=== PATIENT | male | born 1975 | race Caucasian/White ===

== ENCOUNTER 2018-10-12 20:44 | Emergency (ER) | payer OTHER ==
[2018-10-12 21:24] VITALS: BP 116/69; PULSE 80; RESP 18; TEMP 97.4
[2018-10-12] MEDS ORDERED: DIPH,PERTUS(ACELL)TETVAC-LF 0.5 ML VIAL IM ONE (22:06)
[2018-10-12] MEDS ORDERED: LIDOCAINE 1% INJ 10MG/ML (20 ML MDV) SQ STA (22:06)
--- NOTE | 2018-10-12 22:06 | CT ---
EXAM: CT Head Without Intravenous Contrast CLINICAL HISTORY: Pain TECHNIQUE: Axial computed tomography images of the head/brain without intravenous contrast. CTDI is 0.75, 0.085, 45.2, 9 mGy and DLP is 1286.3 mGy-cm. This CT exam was performed using one or more of the following dose reduction techniques: automated exposure control, adjustment of the mA and/or kV according to patient size, and/or use of iterative reconstruction technique. COMPARISON: No relevant prior studies available. FINDINGS: Brain: No acute infarct, hemorrhage, mass or edema. No significant white matter disease. Ventricles: Unremarkable. No ventriculomegaly. Bones/joints: Unremarkable. No acute fracture. Soft tissues: Unremarkable. Sinuses: Unremarkable as visualized. No acute sinusitis. Mastoid air cells: Unremarkable as visualized. No mastoid effusion. IMPRESSION: No acute findings. EXAM: CT Cervical Spine Without Intravenous Contrast CLINICAL HISTORY: Pain TECHNIQUE: Axial computed tomography images of the cervical spine without intravenous contrast. CTDI is 0.75, 0.085, 45.2, 9 mGy and DLP is 1286.3 mGy-cm. This CT exam was performed using one or more of the following dose reduction techniques: automated exposure control, adjustment of the mA and/or kV according to patient size, and/or use of iterative reconstruction technique. COMPARISON: No relevant prior studies available. FINDINGS: Vertebrae: No acute fracture or traumatic malalignment. Reversal of the normal cervical lordosis, likely positional. Discs/spinal canal/neural foramina: No acute findings. No spinal canal stenosis. Soft tissues: Unremarkable. IMPRESSION: No acute findings.
--- NOTE | 2018-10-12 23:08 | ED ---
General Adult HPI - General Chief complaint: Head Injury Stated complaint: Fall, Head Injury Time Seen by Provider: 10/12/18 21:41 Source: patient, RN notes reviewed, old records reviewed Mode of arrival: ambulatory Limitations: no limitations - History of Present Illness Initial comments: 43-year-old male patient with no pertinent past medical history presents ED after sustaining a fall and frontal lobe head trauma. Patient reports that he was working in his garage, tripped fell forward and hit his forehead on a block of a car. Patient fell back, did not have a loss of consciousness. Patient does have a small laceration to his forehead approximately 2 cm. Patient reports that he had some dizziness which has since resolved. Patient denies any current headache. Patient denies any other complaints. Systemic: Pt denies fatigue, myalgia, fever/chills, rash. Pt denies weakness, night sweats, weight loss. Neuro: Pt denies headache, visual disturbances, syncope or pre-syncope. HEENT: Pt denies ocular discharge or irritation, otalgia, rhinorrhea, pharyngitis or notable lymphadenopathy. Cardiopulmonary: Pt denies chest pain, SOB, heart palpitations, dyspnea on exertion. Abdominal/GI: Pt denies abdominal pain, n/v/d. : Pt denies dysuria, burning w/ urination, frequency/urgency. Denies new onset urinary or bowel incontinence. MSK: Pt denies myalgia, loss of strength or function in extremities. Neuro: Pt denies new onset weakness, paresthesias. - Related Data Allergies Allergy/AdvReac Type Severity Reaction Status Date / Time No Known Allergies Allergy Verified 10/12/18 21:24 Review of Systems ROS Statement: Those systems with pertinent positive or pertinent negative responses have been documented in the HPI. ROS Other: All systems not noted in ROS Statement are negative. Past Medical History Past Medical History: No Reported History History of Any Multi-Drug Resistant Organisms: None Reported Past Surgical History: No Surgical Hx Reported Past Psychological History: Bipolar Smoking Status: Current every day smoker Past Alcohol Use History: Abuse, Heavy Past Drug Use History: None Reported General Exam - General Exam Comments Initial Comments: Constitutional: NAD, AOX3, Pt has pleasant affect. HEENT: NC/AT, trachea midline, neck supple, no lymphadenopathy. Posterior pharynx non erythematous, without exudates. External ears appear normal, without discharge. Mucous membranes moist. Eyes PERRLA, EOM intact. There is no scleral icterus. No pallor noted. Cardiopulmonary: RRR, no murmurs, rubs or gallops, no JVD noted. Lungs CTAB in anterior and posterior caberra. No peripheral edema. Abdominal exam: Abdomen soft and non-distended. Abdomen non-tender to palpation in all 4 quadrants. Bowel sounds active in LLQ. No hepatosplenomegaly. No ecchymosis Neuro: CN II-XII intact. No nuchal rigidity. No cervical spinal tenderness. MSK: 2cm laceration noted on forehead. Closed with 3 simple interrupted sutures. Pt tolerated procedure well. No posterior calf tenderness bilaterally, homans sign negative bilaterally. Posterior tibialis and radial pulse +2 bilaterally. Sensation intact in upper and lower extremities. Full active ROM in upper and lower extremities, 5/5 stregnth. Limitations: no limitations Course Vital Signs 10/12/18 21:20 Temperature 97.4 F L Pulse Rate 80 Respiratory 18 Rate Blood Pressure 116/69 O2 Sat by Pulse 98 Oximetry Procedures - Laceration Laceration #1 Consent Obtained: verbal consent Indication: laceration Site: other (forehead) Size (cm): 2 Description: linear Depth: simple, single layer Anesthetic Used: lidocaine 1% Anesthesia Technique: local infiltration Amount (mls): 3 Pre-repair: wound explored, irrigated extensively, deep structures intact (no foreign body or osseous involvement) Type of Sutures: nylon Size of Sutures: 5-0 Number of Sutures: 3 Technique: simple, interrupted Patient Tolerated Procedure: well, no complications Medical Decision Making - Medical Decision Making 43-year-old male patient with no pertinent past medical history presents ED after sustaining a fall and frontal lobe head trauma. Patient reports that he was working in his garage, tripped fell forward and hit his forehead on a block of a car. Patient fell back, did not have a loss of consciousness. Patient does have a small laceration to his forehead approximately 2 cm. Patient reports that he had some dizziness which has since resolved. Patient denies any current headache. Patient denies any other complaints. Patient vital signs stable, afebrile. Physical exam displayed a normal neurological exam, 2cm laceration noted on forehead. Closed with 3 simple interrupted sutures. Pt tolerated procedure well. Repeat neurologic exam within normal limits. CT of brain and cervical spine without contrast did not display any acute process. Patient asymptomatic. Patient tetanus updated. Patient to be discharged. Follow up with primary care provider. Patient educated on signs and symptoms of infection. Patient was understanding. Case discussed with Dr. Saba. Disposition Clinical Impression: Fall Disposition: HOME SELF-CARE Condition: Stable Instructions (If sedation given, give patient instructions): Fall Prevention (ED) Additional Instructions: Patient to adhere to previously discussed treatment plan and will take medication(s) as directed. Patient to follow up with PCP in 1-2 days. Patient to return to ED if symptoms do not improve. Please return for suture removal: Hand: 7-10 days Face: 5 days Chest/abdomen: 12-14 days Extremities: 7-10 days Scalp: 7 days Eyebrow: 5-7 days Foot/sole: 12-14 days Please monitor for signs and symptoms of infection including: redness, warmth, drainage, discharge. Please return to ED if these signs or symptoms occur, new signs or symptoms develop or if condition worsens in anyway. Is patient prescribed a controlled substance at d/c from ED?: No Referrals: Bernardo Niño MD [Primary Care Provider] - 1-2 days
== END 2018-10-12 23:13 | disposition home or self-care (01) ==
LOC: EC 20:44
DX: S01.81XA Laceration without foreign body of other part of head, initial encounter (principal); F17.200 Nicotine dependence, unspecified, uncomplicated; Z23 Encounter for immunization; W01.198A Fall on same level from slipping, tripping and stumbling with subsequent striking against other object, initial encounter; Y92.015 Private garage of single-family (private) house as the place of occurrence of the external cause; Y93.89 Activity, other specified
CPT/HCPCS: 72125; 70450; 90715; 99284; 12011; 90471; J2001

== ENCOUNTER 2019-12-11 15:33 | Emergency (ER) | payer OTHER ==
[2019-12-11 15:41] VITALS: TEMP 98.3
[2019-12-11] MEDS ORDERED: HYDROcodone/APAP 7.5-325MG 1 EACH TAB PO ONE (16:06)
--- NOTE | 2019-12-11 16:36 | XR ---
EXAMINATION TYPE: XR forearm LT, XR humerus LT DATE OF EXAM: 12/11/2019 CLINICAL HISTORY: Ripping sensation and pain after lifting injury of the left forearm. TECHNIQUE: Two views of the left forearm are obtained. 2 views of the left humerus were also obtained . COMPARISON: None. FINDINGS: There is no acute fracture or dislocation seen in the left radius or ulna. The left elbow and wrist joints appear within normal limits. The overlying soft tissue appears within normal limit s. There is no acute fracture or dislocation seen in the left humerus. The left shoulder and elbow joints appear aligned with mild acromioclavicular arthropathy. The overlying soft tissue appears wit hin normal limits. IMPRESSION: There is no acute fracture or dislocation seen in the left humerus, radius or ulna.
--- NOTE | 2019-12-11 16:37 | ED ---
Upper Extremity HPI - General Chief Complaint: Extremity Injury, Upper Stated Complaint: Arm injury Time Seen by Provider: 12/11/19 15:44 Source: patient Mode of arrival: ambulatory Limitations: no limitations - History of Present Illness Initial Comments: 44-year-old male presenting for onset of left arm pain that started today. Having heavy. Patient states he lifted something heavy and then he felt some pain near his left antecubital fossa. Patient states that mostly is pain in the mid forearm he did not note any lump on the forearm he states the pain occasional radiates towards triceps but is mostly in the left forearm. patient believe he tore something. Patient denies arm swelling, redness, coolness or pallor. He denies experiencing this pain prior to lifting the heavy object, denies fall or direct trauma. Patient has no additional complaints. Upon arrival he appears well no distress. - Related Data Allergies Allergy/AdvReac Type Severity Reaction Status Date / Time No Known Allergies Allergy Verified 12/11/19 15:37 Review of Systems ROS Statement: Those systems with pertinent positive or pertinent negative responses have been documented in the HPI. ROS Other: All systems not noted in ROS Statement are negative. Past Medical History Past Medical History: No Reported History History of Any Multi-Drug Resistant Organisms: None Reported Past Surgical History: No Surgical Hx Reported Additional Past Surgical History / Comment(s): R hand Past Psychological History: Bipolar Smoking Status: Current every day smoker Past Alcohol Use History: None Reported Past Drug Use History: None Reported General Exam - General Exam Comments Initial Comments: General: The patient is awake and alert, in no distress, and does not appear acutely ill. Eye: Pupils are equal, round and reactive to light, extra-ocular movements are intact. No nystagmus. There is normal conjunctiva bilaterally. No signs of icterus. Ears, nose, mouth and throat: There are moist mucous membranes and no oral lesions. Musculoskeletal: Normal inspection of the humerus and forearm. There is no bulging palpable muscle belly. Patient is tenderness along the proximal forearm. No CVA tenderness of the triceps muscle. Full range motion of the forearm as well as the shoulder and wrist. Patient is able to make the okay fingers crossed thumbs-up and oppose the small digit and thumb. Refuses a [place] strength test that appears intact sensation intact Radial pulses equal bilat erally 2+. Neurological: A&O x 3. CN II-XII intact grossly, There are no obvious motor or sensory deficits. Coordination appears grossly intact. Speech is normal. Skin: Skin is warm and dry and no rashes or lesions are noted. Psychiatric: Cooperative, appropriate mood & affect, normal judgment. Limitations: no limitations Course Vital Signs 12/11/19 12/11/19 15:38 16:15 Temperature 98.3 F Pulse Rate 92 73 Respiratory 18 16 Rate Blood Pressure 122/72 141/78 O2 Sat by Pulse 97 100 Oximetry Medical Decision Making - Medical Decision Making 44-year-old male presenting today for chief complaint of left arm injury after lifting, reproducible to touch/movement. Suspect tendon/muscle injury. XR (-) Neurovascular exam intact. No swelling. Patient was provided sling for comfort given [place] in the emergency department instructed to take ibuprofen and Tylenol patient and follow-up with orthopedic surgery return parameters were discussed the patient was discharged appearing well Disposition Clinical Impression: Left upper arm injury Disposition: HOME SELF-CARE Condition: Good Instructions (If sedation given, give patient instructions): Tendon Rupture (ED) Additional Instructions: Please use medication as discussed. Please follow-up with family doctor in the next 2 days, if symptoms persistent please follow-up with orthopedic surgery for evaluation. Please return to emergency room if the symptoms increase or worsen or for any other concerns. Is patient prescribed a controlled substance at d/c from ED?: No Referrals: Bernardo Niño MD [Primary Care Provider] - 1-2 days Pancho Lawson MD [Medical Doctor] - 1-2 days Time of Disposition: 16:37
[2019-12-11 17:05] VITALS: BP 141/78; PULSE 73; RESP 16
== END 2019-12-11 17:03 | disposition home or self-care (01) ==
LOC: EC 15:33
DX: S49.92XA Unspecified injury of left shoulder and upper arm, initial encounter (principal); F17.200 Nicotine dependence, unspecified, uncomplicated; X50.0XXA Overexertion from strenuous movement or load, initial encounter
CPT/HCPCS: 99283

== ENCOUNTER 2022-02-07 00:05 | Observation (INO) | payer MEDICAID, OTHER ==
[2022-02-07 00:40] LABS: Basophils # (A) 0.1 k/uL (0-0.2); Basophils % (A) 0 %; Eosinophils # (A) 0.1 k/uL (0-0.7); Eosinophils % (A) 1 %; HCT 45.4 % (39.0-53.0); Lymphocytes # (A) 1.4 k/uL (1.0-4.8); Lymphocytes % (A) 11 %; MCH 32.6 pg (25.0-35.0); MCHC 35.2 g/dL (31.0-37.0); MCV 92.6 fL (80.0-100.0); Mean Platelet Volume 7.5; Monocytes # (A) 0.6 k/uL (0-1.0); Monocytes % (A) 5 %; Neutrophils # (A) 10.4 k/uL (1.3-7.7); Neutrophils % (A) 82 %; Platelet Count 296 k/uL (150-450); RDW 12.9 % (11.5-15.5); WBC 12.7 k/uL (3.8-10.6)
[2022-02-07 01:00] LABS: Partial Thromboplastin Time 26.3 sec (22.0-30.0); Prothrombin Time 10.5 sec (9.0-12.0)
[2022-02-07 01:06] LABS: Albumin 5.1 g/dL (3.5-5.0); Calcium 10.3 mg/dL (8.4-10.2); Potassium 4.3 mmol/L (3.5-5.1); Total Bilirubin 0.4 mg/dL (0.2-1.3); Total Protein 8.1 g/dL (6.3-8.2)
[2022-02-07] MEDS ORDERED: NITROGLYCERIN SL TABS 0.4 MG TAB SUBLINGUAL PRN (02:44)
--- NOTE | 2022-02-07 02:53 | ED ---
Chest Pain HPI - General Chief Complaint: Chest Pain Stated Complaint: Chest Pain Time Seen by Provider: 02/07/22 01:10 Source: patient Mode of arrival: wheelchair Limitations: no limitations - History of Present Illness Initial Comments: This patient is a 46-year-old man who presents to have evaluation of a number of symptoms. Patient states the main one a concern and was some pain in the chest. Patient indicates the area just left the sternum and the epigastric area. He states also that there was some tightness in the upper chest associated is well. The pain did come on approximately an hour prior to arrival here. He states that he was in bed trying to rest. Patient also was having some other aches and pains throughout the course of the day but believes that the chest pain was something different. Patient states she has strong family history of cardiac disease including a grandfather had of heart attack, father who had a couple stents. Patient with heavy smoking history. MD Complaint: chest pain Onset/Timin -: hour(s) Onset: during rest Pain Location: substernal, epigastric Pain Radiation: none Severity: moderate Quality: tightness Consistency: constant Improves With: nothing Worsens With: nothing Treatments Prior to Arrival: none - Related Data Home Medications Medication Instructions Recorded Confirmed Escitalopram [Lexapro] 10 mg PO DAILY 02/07/22 02/07/22 Fluticasone Nasal [place] [Flonase 2 spray EA NOSTRIL DAILY PRN 02/07/22 02/07/22 Nasal [place]] Loratadine [Claritin] 10 mg PO BID 02/07/22 02/07/22 Montelukast Sodium [Singulair] 10 mg PO DAILY 02/07/22 02/07/22 Sildenafil Citrate 100 mg PO HS 02/07/22 02/07/22 Umeclidinium Brm/Vilanterol Tr 1 puff INHALATION RT-DAILY 02/07/22 02/07/22 [Anoro Ellipta 62.5-25 Mcg INH] Allergies Allergy/AdvReac Type Severity Reaction Status Date / Time No Known Allergies Allergy Verified 02/07/22 06:47 Review of Systems ROS Statement: Those systems with pertinent positive or pertinent negative responses have been documented in the HPI. ROS Other: All systems not noted in ROS Statement are negative. Constitutional: Denies: fever, chills Respiratory: Denies: cough, dyspnea Cardiovascular: Reports: chest pain. Denies: palpitations, orthopnea, edema, syncope Gastrointestinal: Denies: abdominal pain, nausea, vomiting, diarrhea Genitourinary: Denies: dysuria, hematuria Musculoskeletal: Denies: back pain Skin: Denies: rash Neurological: Denies: headache, weakness, numbness EKG Findings - EKG Results: EKG: interpreted by ERMD, sinus rhythm, normal axis, normal QRS, normal ST/T, no acute changes EKG shows: tachycardia (Rate 104 bpm) Past Medical History Past Medical History: No Reported History History of Any Multi-Drug Resistant Organisms: None Reported Past Surgical History: No Surgical Hx Reported Additional Past Surgical History / Comment(s): R hand Past Psychological History: Bipolar Smoking Status: Current every day smoker Past Alcohol Use History: None Reported Past Drug Use History: None Reported - Past Family History Father Family Medical History: Coronary Artery Disease (CAD) Additional Family Medical History / Comment(s): Cardiac stents, Mi in his 60s. Pt's uncles on dad's side had MIs in their 50s. Mother Family Medical History: Diabetes Mellitus, Hypertension, Osteoarthritis (OA), Renal Disease Additional Family Medical History / Comment(s): Gout, blindness. Pt's uncles on mother's side had MIs. General Exam Limitations: no limitations General appearance: alert, in no apparent distress Head exam: Present: atraumatic, normocephalic Eye exam: Present: normal appearance. Absent: scleral icterus, conjunctival injection Respiratory exam: Present: normal lung sounds bilaterally. Absent: respiratory distress, wheezes, rales, rhonchi, stridor Cardiovascular Exam: Present: regular rate, normal heart sounds. Absent: systolic murmur, diastolic murmur, rubs, gallop GI/Abdominal exam: Present: soft. Absent: distended, tenderness, guarding, rebound, rigid Extremities exam: Present: normal inspection, normal capillary refill. Absent: pedal edema, calf tenderness Back exam: Present: normal inspection. Absent: CVA tenderness (R), CVA tenderness (L) Neurological exam: Present: alert Skin exam: Present: warm, dry, intact, normal color. Absent: rash Course Vital Signs 02/07/22 02/07/22 02/07/22 00:07 03:05 08:44 Pulse Rate 112 H 88 79 Respiratory 16 18 16 Rate Blood Pressure 109/74 92/54 O2 Sat by Pulse 92 L 98 Oximetry 02/07/22 13:14 Pulse Rate 68 Respiratory 18 Rate Blood Pressure 114/72 O2 Sat by Pulse Oximetry Disposition Clinical Impression: Chest pain Disposition: ADMITTED IP TO THIS HOSP Condition: Stable Is patient prescribed a controlled substance at d/c from ED?: No
[2022-02-07] MEDS ORDERED: ATORVASTATIN 80 MG TAB PO SCH (03:59)
--- NOTE | 2022-02-07 04:01 | P.HPIM ---
History of Present Illness H&P Date: 02/07/22 The patient is a 46-year-old male with a PMH of COPD, and tobacco abuse who presents to the emergency room with complaints of chest discomfort. The patient reports that he was in his usual state of health until a 7 PM earlier today when he developed sudden onset of left-sided chest discomfort with associated shortness of breath, diaphoresis, and dizziness. The patient reports that he has had multiple family members who have before the age of 50 with heart attacks, and that his symptoms prompted him to come to the emergency room. He reports that his pain has resolved at the time of interview. Reports that the pain was 10 out of 10 on maximal intensity, nonradiating, with above associated symptoms. Reports a chronic morning cough which is unchanged. Denied fever, chills, abdominal pain, diarrhea. Denied lower extremity swelling or pain. Laboratory evaluation emergency room revealed WBC count 12.7, BUN 37, creatinine 1.73, with troponin less than 0.012. EKG revealed sinus tachycardia at [address]/T-wave changes noted as reviewed by me. Review of systems: Pertinent positives and negatives as discussed in HPI, a complete review of systems was performed and all other systems are negative. Physical examination: General: non toxic, no distress, appears at stated age, normal weight Derm: no unusual rashes/lesions, warm Head: atraumatic, normocephalic, symmetric Eyes: EOMI, no lid lag, anicteric sclera, pupils equal round reactive to light ENT: Nose and ears atraumatic Neck: No cervical lymphadenopathy, trachea midline, supple Mouth: no lip lesion, mucus membranes moist Cardiovascular: S1S2 reg, no murmur, positive dorsalis pedis pulse bilateral, no edema Lungs: CTA bilateral, no rhonchi, no rales, no accessory muscle use Abdominal: soft, nontender to palpation, no guarding Ext: muscle strength 5 out of 5 in all 4 extremities grossly, no gross muscle atrophy, no contractures, Neuro: CN II-XI grossly intact, no gross focal neuro deficits Psych: Alert, oriented, appropriate affect Assessment/plan Chest pain, rule out ACS -Cardiac monitoring -Trend troponin -Cardiology consult -Continue with aspirin, statin Chronic conditions: COPD -Continue home meds DVT prophylaxis -Heparin subcu The patient is admitted with an anticipated less than 2 midnight stay for evaluation of chest pain CODE STATUS: Full Code Discussed with: Patient Anticipated discharge date: In a.m. Anticipated discharge place: Home Past Medical History Past Medical History: No Reported History History of Any Multi-Drug Resistant Organisms: None Reported Past Surgical History: No Surgical Hx Reported Additional Past Surgical History / Comment(s): R hand Past Psychological History: Bipolar Smoking Status: Current every day smoker Past Alcohol Use History: None Reported Past Drug Use History: None Reported - Past Family History Father Family Medical History: Coronary Artery Disease (CAD) Medications and Allergies Allergies Allergy/AdvReac Type Severity Reaction Status Date / Time No Known Allergies Allergy Verified 02/07/22 00:07 Physical Exam Vitals: Vital Signs Pulse Resp BP Pulse Ox 02/07/22 03:05 88 18 109/74 92 L 02/07/22 00:07 112 H 16 Intake and Output 02/06/22 02/06/22 02/07/22 14:59 22:59 06:59 Other: Weight 78.471 kg Results CBC & Chem 7: 02/07/22 00:13 02/07/22 00:13 Labs: Abnormal Lab Results - Last 24 Hours (Table) 02/07/22 02/07/22 Range/Units 00:13 00:13 WBC 12.7 H (3.8-10.6) k/uL Neutrophils # 10.4 H (1.3-7.7) k/uL BUN 37 H (9-20) mg/dL Creatinine 1.73 H (0.66-1.25) mg/dL Glucose 107 H (74-99) mg/dL Calcium 10.3 H (8.4-10.2) mg/dL Albumin 5.1 H (3.5-5.0) g/dL
--- NOTE | 2022-02-07 04:21 | XR ---
EXAMINATION TYPE: XR chest 2V DATE OF EXAM: 02/07/2022 COMPARISON: 12/27/2021 HISTORY: Chest pain TECHNIQUE: FINDINGS: Heart and mediastinum are normal. Lungs are clear. Diaphragm is normal. Bony thorax is inta ct. There are chest leads. IMPRESSION: Normal chest. No change.
[2022-02-07] MEDS ORDERED: HEPARIN SODIUM,PORCINE/PF 5,000 UNIT/0.5 ML SYRINGE SQ SCH (08:00)
[2022-02-07 10:06] LABS: African American GFR (CKD) 79 (>60 ml/min/1.73 sqM); Anion Gap 8 mmol/L; Blood Urea Nitrogen 38 mg/dL (9-20); Calcium 9.7 mg/dL (8.4-10.2); Carbon Dioxide 25 mmol/L (22-30); Chloride 105 mmol/L (98-107); Glucose 96 mg/dL (74-99); Non-African American GFR(CKD) 69 (>60 ml/min/1.73 sqM); Potassium 4.1 mmol/L (3.5-5.1); Sodium 138 mmol/L (137-145)
--- NOTE | 2022-02-07 11:41 | P.CRDCN ---
History of Present Illness History of present illness: This is a 46 year old male with a past medical history of COPD, chronic nicotine dependence, family history of CAD. 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 He did have a stress test with Dr. Mitchell 2 years ago. We have been asked to see patient for chest pain. Yesterday at around 10:30 PM, patient was lying in bed and had left sided chest pain. Non-radiating. He described it as tightness and pressure. He had associated shortness of breath, dizziness, some nausea and diaphoresis. He had a pulse ox at home, noted his HR to be at 199. He states it lasted for a hours, eventually subsided in the emergency department. No specific aggravating or alleviating factors. Activity did not make the pain worse. He states he does have a history of palpitations in the past where he noted his HR to be 180s. He denies any syncope, abdominal pain, vomiting. He denies any fever cough or chills. He has had no further chest discomfort. He denies any history of CAD, LA, Stroke, diabetes, heart failure or arrhythmia. He is a current smoker, smokes 2 PPD. He denies any alcohol or illicit drug use. Family history includes father had LA in his 60s, uncles on both sides of his family have all had MIs or CAD with stents placed in their 40s-50s. He states that he underwent a stress test with Dr. Jackson 2 years ago and was told it was normal. DIAGNOSTICS * EKG reveals sinus tachycardia HR 104, no significant ST- T wave abnormalities suggesting acute ischemia * Telemetry tracings at bedside indicate sinus rhythm. * Chest xray hyperinflated lungs, no evidence of any acute cardiopulmonary process. * Laboratory reviewed, WBC 2.7, hemoglobin 16, platelets 296, is troponin negative 3, sodium 138, potassium 4.1, BUN 38, serum creatinine 1.25 * Current home medications include Singulair, Claritin, Flonase, Lexapro, anoro Ellipta inhaler REVIEW OF SYSTEMS At the time of my exam patient has no symptoms and his symptoms described in HPI have resolved. CONSTITUTIONAL: Denies fever or chills. CARDIOVASCULAR: Denies chest pain, shortness of breath, orthopnea, PND or palpitations. RESPIRATORY: Denies cough. GASTROINTESTINAL: Denies abdominal pain, diarrhea, constipation, nausea or vomiting. MUSCULOSKELETAL: Denies myalgias. NEUROLOGIC: Denies numbness, tingling, headache or weakness. ENDOCRINE: Denies fatigue, weight change, polydipsia or polyurina. GENITOURINARY: Denies burning, hematuria or urgency with micturation. HEMATOLOGIC: Denies history of anemia or bleeding. PHYSICAL EXAMINATION Blood pressure 92/54, HR 79, 98% on room air CONSTITUTIONAL: No apparent distress. HEENT: Head is normocephalic. Pupils are equal, round. Sclerae anicteric. Mucous membranes of the mouth are moist. No JVD. No carotid bruit. CHEST EXAMINATION: Lungs are clear, to auscultation. No chest wall tenderness is noted on palpation or with deep breathing. HEART EXAMINATION: Regular rate and rhythm. S1, S2 heard. No murmurs, gallops or rub. ABDOMEN: Soft, nontender. Positive bowel sounds. EXTREMITIES: 2+ peripheral pulses, no lower extremity edema and no calf tenderness. SKIN: warm, dry NEUROLOGIC EXAMINATION: Patient is awake, alert and oriented x3. ASSESSMENT Chest pain, atypical, acute coronary syndrome has been ruled out Reported heart rate in the 190s at home measured on a pulse oximetry Acute kidney injury, improved COPD Chronic nicotine decadence PLAN An acute coronary event has been ruled out with no EKG evidence of ischemia and negative cardiac enzymes. Obtain 2D echocardiogram and doppler study to assess cardiac structure and function. Recommend 30 day event monitor on discharge If echocardiogram with no acute findings, ok to discharge from a cardiology perspective with event monitor and follow up outpatient Smoking cessation discussed and highly recommended. Thank you kindly for this consultation. Nurse practitioner note has been reviewed by physician. Signing provider agrees with the documented findings, assessment, and plan of care. Past Medical History Past Medical History: No Reported History History of Any Multi-Drug Resistant Organisms: None Reported Past Surgical History: No Surgical Hx Reported Additional Past Surgical History / Comment(s): R hand Past Psychological History: Bipolar Smoking Status: Current every day smoker Past Alcohol Use History: None Reported Past Drug Use History: None Reported - Past Family History Father Family Medical History: Coronary Artery Disease (CAD) Mother Family Medical History: Diabetes Mellitus, Hypertension, Osteoarthritis (OA), Renal Disease Additional Family Medical History / Comment(s): Gout, blindness. Pt's uncles on mother's side had MIs. Medications and Allergies Home Medications Medication Instructions Recorded Confirmed Type Escitalopram [Lexapro] 10 mg PO DAILY 02/07/22 02/07/22 History Fluticasone Nasal [place] [Flonase 2 spray EA NOSTRIL DAILY PRN 02/07/22 02/07/22 History Nasal [place]] Loratadine [Claritin] 10 mg PO BID 02/07/22 02/07/22 History Montelukast Sodium [Singulair] 10 mg PO DAILY 02/07/22 02/07/22 History Sildenafil Citrate 100 mg PO HS 02/07/22 02/07/22 History Umeclidinium Brm/Vilanterol Tr 1 puff INHALATION RT-DAILY 02/07/22 02/07/22 History [Anoro Ellipta 62.5-25 Mcg INH] Allergies Allergy/AdvReac Type Severity Reaction Status Date / Time No Known Allergies Allergy Verified 02/07/22 06:47 Physical Exam Vitals: Vital Signs Pulse Resp BP Pulse Ox 02/07/22 08:44 79 16 92/54 98 02/07/22 03:05 88 18 109/74 92 L 02/07/22 00:07 112 H 16 Intake and Output 02/06/22 02/07/22 02/07/22 22:59 06:59 14:59 Other: Weight 78.471 kg Results 02/07/22 00:13 02/07/22 09:32 Cardiac Enzymes 02/07/22 02/07/22 02/07/22 Range/Units 00:13 00:13 03:34 AST 28 (17-59) U/L Troponin I <0.012 <0.012 (0.000-0.034) ng/mL 02/07/22 Range/Units 06:06 AST (17-59) U/L Troponin I <0.012 (0.000-0.034) ng/mL Coagulation 02/07/22 Range/Units 00:13 PT 10.5 (9.0-12.0) sec APTT 26.3 (22.0-30.0) sec CBC 02/07/22 Range/Units 00:13 WBC 12.7 H (3.8-10.6) k/uL RBC 4.90 (4.30-5.90) m/uL Hgb 16.0 (13.0-17.5) gm/dL Hct 45.4 (39.0-53.0) % Plt Count 296 (150-450) k/uL Comprehensive Metabolic Panel 02/07/22 Range/Units 00:13 Sodium 138 (137-145) mmol/L Potassium 4.3 (3.5-5.1) mmol/L Chloride 101 (98-107) mmol/L Carbon Dioxide 25 (22-30) mmol/L BUN 37 H (9-20) mg/dL Creatinine 1.73 H (0.66-1.25) mg/dL Glucose 107 H (74-99) mg/dL Calcium 10.3 H (8.4-10.2) mg/dL AST 28 (17-59) U/L ALT 23 (4-49) U/L Alkaline Phosphatase 72 (38-126) U/L Total Protein 8.1 (6.3-8.2) g/dL Albumin 5.1 H (3.5-5.0) g/dL Current Medications Generic Name Dose Route Start Last Admin Trade Name Freq PRN Reason Stop Dose Admin Aspirin 325 mg 02/08/22 09:00 Aspirin 325 Mg Tab PO DAILY MARYANN Atorvastatin Calcium 80 mg 02/07/22 03:59 02/07/22 04:21 Atorvastatin 80 Mg Tab PO 80 mg HS MARYANN Administration Heparin Sodium (Porcine) 5,000 unit 02/07/22 08:00 02/07/22 08:42 Heparin Sodium,Porcine/Pf 5,000 Unit/0.5 Ml Syringe SQ 5,000 unit Q8HR MARYANN Administration Nitroglycerin 0.4 mg 02/07/22 02:44 Nitroglycerin Sl Tabs 0.4 Mg Tab SUBLINGUAL Q5M PRN Chest Pain Intake and Output 02/06/22 02/07/22 02/07/22 22:59 06:59 14:59 Other: Weight 78.471 kg 02/07/22 00:13 02/07/22 00:13
--- NOTE | 2022-02-07 11:53 | CA ---
Transthoracic Echo Report Name: Eboni Desir Age: 46 Gender: M : 1975 Exam Date: 02/07/2022 10:08 Exam Location: [facility] Ht (in): 69 Wt (lb): 173 Ordering Physician: Chio Mondragon Attending/Referring Phys: Safety Investigator/Cause Analyst Blanka Reynoso, JOHN Procedure CPT: Indications: chest pain, shortness of breath, LV function Cardiac Hx: Technical Quality: Good Contrast 1: Total Dose (mL): Contrast 2: Total Dose (mL): MEASUREMENTS (Male / Female) Normal Values 2D ECHO LV Diastolic Diameter PLAX 4.7 cm 4.2 - 5.9 / 3.9 - 5.3 cm LV Systolic Diameter PLAX 3.0 cm IVS Diastolic Thickness 0.9 cm 0.6 - 1.0 / 0.6 - 0.9 cm LVPW Diastolic Thickness 1.0 cm 0.6 - 1.0 / 0.6 - 0.9 cm LV Relative Wall Thickness 0.4 RV Internal Dim ED PLAX 3.4 cm LA Systolic Diameter LX 3.2 cm 3.0 - 4.0 / 2.7 - 3.8 cm LA Volume 39.4 cm??? 18 - 58 / 22 - 52 cm??? M-MODE Aortic Root Diameter MM 3.6 cm AV Cusp Separation MM 2.2 cm DOPPLER AV Peak Velocity 129.3 cm/s AV Peak Gradient 6.7 mmHg MV Area PHT 3.2 cm??? Mitral E Point Velocity 71.3 cm/s Mitral A Point Velocity 66.9 cm/s Mitral E to A Ratio 1.1 MV Deceleration Time 233.9 ms MV E' Velocity 10.9 cm/s Mitral E to MV E' Ratio 6.5 TR Peak Velocity 181.9 cm/s TR Peak Gradient 13.2 mmHg Right Ventricular Systolic Press 18.2 mmHg FINDINGS Left Ventricle Left ventricular ejection fraction is estimated at 60-65 %. Left ventricular cavity size normal. Left ventricular wall thickness normal. Right Ventricle Mild right ventricular dilatation. Right ventricular systolic pressure within normal limits. Right Atrium The right atrium is normal in size. Left Atrium The left atrium is normal in size. No evidence for an atrial septal defect. Mitral Valve Structurally normal mitral valve without significant stenosis or prolapse. There is no mitral regurgitation. Aortic Valve Structurally normal aortic valve without significant sclerosis or stenosis. There is no aortic regurgitation. Tricuspid Valve Structurally normal tricuspid valve without significant stenosis. Pulmonary artery systolic pressure is normal. Trace to mild tricuspid regurgitation. Pulmonic Valve Trace pulmonic regurgitation. Pericardium Normal pericardium without effusion. Aorta Normal aortic root dimension. CONCLUSIONS Normal left ventricular ejection fraction 60-65% No mitral regurgitation Mild tricuspid regurgitation RVSP 18 No pericardial effusion Previewed by: Dr. Renzo Phoenix DO (Electronically Signed) Final Date: 07 February 2022 11:51
[2022-02-07 13:15] VITALS: BP 114/72; PULSE 68; RESP 18
--- NOTE | 2022-02-07 14:00 | P.DS ---
Providers Date of admission: 02/07/22 02:44 Expected date of discharge: 02/07/22 Attending physician: Mandy Phillips MD Consults: 02/07/22 02:44 Consult Physician Routine Consulting Provider: Irwin Avalos Consult Reason/Comments: chest pain Do you want consulting provider notified?: Yes Primary care physician: Bernardo Niño Hospital Course: Discharge Diagnosis: Chest pain, acute coronary event ruled out Acute kidney injury, resolved with IV fluid hydration COPD, stable not in acute exacerbation Hospital Course: Patient is a very pleasant 46-year-old male with a past medical history of COPD. He presented to the emergency department with a chief complaint of chest pain and tachycardia. Patient reports yesterday evening he developed sudden onset of left-sided chest pain accompanied by shortness of breath, diaphoresis, and dizziness. Patient reports he became very concerned and his pulse ox to check his oxygen levels and states that his oxygen levels were stable 96% but the heart rate reading was reading 199 and his heart felt as though it was racing so he became to the emergency department immediately. Patient reports prior to this event he was in his normal state of health. Patient states this chest pain came on suddenly while at rest and denies experiencing any worsening headache, lightheadedness, nausea, vomiting, or experiencing any numbness/tingling/weakness in extremities. He denies any fever or chills. Patient reports that he frequently has a headache accompanied by lightheadedness, dizziness, and tinnitus secondary to chronic recurrent sinus infections and follows closely with an ENT specialist. Patient underwent full evaluation in the emergency department. Labs completed revealing mild leukocytosis with WBC count of 12.7 and an acute kidney injury with BUN of 37, creatinine 1.73, and GFR 46. Troponin negative at less than 0.012. EKG showing sinus tachycardia at 104 bpm with no noted T-wave or ST abnormalities. X-ray negative for acute cardiopulmonary process. Patient was admitted under our services with consultation to cardiology and monitored overnight and had full resolution of previously reported chest pain and palpitations. Repeat morning labs revealed resolution of previous ABI with BUN of 38, creatinine 1.25 and GFR of 69. Troponins were trended overnight and all negative at less than 0.0123 draws. Echocardiogram showing EF of 60-65% with mild tricuspid regurgitation. Patient was seen and evaluated by vacuum closing machine operator and was placed on a 30 day event monitor. Cardiology recommending outpatient follow-up in our office in 4-6 weeks. Patient has had no further episodes of chest pain or palpitations since arrival to our facility. He is medically stable for discharge at this time. Vital signs unremarkable with blood pressure 114/72, heart rate 68, and respiratory rate 18 with SpO2 of 98% on room air. No medication changes made this admission. Patient medically stable and follow up outpatient with PCP and cardiology. Physical examination: General: non toxic, no distress, appears at stated age Derm: warm, dry Head: atraumatic, normocephalic, symmetric Eyes: EOMI, no lid lag, anicteric sclera Mouth: no lip lesion, mucus membranes moist Cardiovascular: S1S2 reg, no murmur, positive posterior tibial pulse bilateral, Lungs: CTA bilateral, no rhonchi, no rales , no accessory muscle use Abdominal: soft, nontender to palpation, no guarding, no appreciable organomegaly Ext: no gross muscle atrophy, no edema, no contractures Neuro: CN II-XI grossly intact, no focal neuro deficits Psych: Alert, oriented, appropriate affect A total of 34 minutes of time were spent preparing this complex discharge summary. Pt was discharged on 02/07/22 at 12:41 PM I reviewed the documentation as provided by the RADHA above, who is the original author of this note. I agree with the documented assessment and plan, with the following changes: none Patient Condition at Discharge: Stable Plan - Discharge Summary Discharge Rx Participant: No New Discharge Prescriptions: Continue Montelukast Sodium [Singulair] 10 mg PO DAILY Loratadine [Claritin] 10 mg PO BID Escitalopram [Lexapro] 10 mg PO DAILY Fluticasone Nasal [place] [Flonase Nasal [place]] 2 spray EA NOSTRIL DAILY PRN PRN Reason: Congestion Umeclidinium Brm/Vilanterol Tr [Anoro Ellipta 62.5-25 Mcg INH] 1 puff INHALATION RT-DAILY Sildenafil Citrate 100 mg PO HS Discharge Medication List Escitalopram [Lexapro] 10 mg PO DAILY 02/07/22 [History] Fluticasone Nasal [place] [Flonase Nasal [place]] 2 spray EA NOSTRIL DAILY PRN 02/07/22 [History] Loratadine [Claritin] 10 mg PO BID 02/07/22 [History] Montelukast Sodium [Singulair] 10 mg PO DAILY 02/07/22 [History] Sildenafil Citrate 100 mg PO HS 02/07/22 [History] Umeclidinium Brm/Vilanterol Tr [Anoro Ellipta 62.5-25 Mcg INH] 1 puff INHALATION RT-DAILY 02/07/22 [History] Follow up Appointment(s)/Referral(s): Renzo Phoenix DO [STAFF PHYSICIAN] - 6 Weeks Bernardo Niño MD [Primary Care Provider] - 1-2 days Activity/Diet/Wound Care/Special Instructions: Activity: As tolerated. Take breaks as needed. Diet: Heart healthy and carb consistent diet. Avoid salts, or foods with hidden salts such as canned or boxed foods and frozen dinners. Extra salt makes your heart work harder and traps the fluid in your body for longer. Special Instructions: Take all of your medications as directed and remember to keep all of your doctor's appointments and follow-up as needed. Thank you for allowing us to participate in your care, it was truly a pleasure having you for our patient!!! Discharge Disposition: HOME SELF-CARE
[2022-02-08] MEDS ORDERED: ASPIRIN 81 MG PO SCH (09:00)
[2022-02-08] MEDS ORDERED: ASPIRIN 325 MG TAB PO SCH (09:00)
== END 2022-02-07 13:15 | disposition home or self-care (01) ==
LOC: EC 00:05 → 6NMEDSUR 02:44
PROVIDERS: ADMIT Internal Medicine; ATTEND Internal Medicine
DX: R07.89 Other chest pain (principal); R00.0 Tachycardia, unspecified; R06.02 Shortness of breath; R42 Dizziness and giddiness; R61 Generalized hyperhidrosis; R51.9 Headache, unspecified; D72.829 Elevated white blood cell count, unspecified; R00.2 Palpitations; R11.0 Nausea; N17.9 Acute kidney failure, unspecified; J44.1 Chronic obstructive pulmonary disease with (acute) exacerbation; J44.9 Chronic obstructive pulmonary disease, unspecified; H93.19 Tinnitus, unspecified ear; I07.1 Rheumatic tricuspid insufficiency; F17.210 Nicotine dependence, cigarettes, uncomplicated; F31.9 Bipolar disorder, unspecified; Z79.899 Other long term (current) drug therapy; Z83.3 Family history of diabetes mellitus; Z82.1 Family history of blindness and visual loss; Z82.49 Family history of ischemic heart disease and other diseases of the circulatory system; Z82.61 Family history of arthritis; Z84.1 Family history of disorders of kidney and ureter
CPT/HCPCS: 96372; 99285; 36415; 93005; 93306; 93270; 80053; 80048; 84484; 85025; 85610; 85730; 71046; G0378; J1644

== ENCOUNTER → 2022-04-08 | Outpatient (CLI) | payer MEDICAID, OTHER ==
--- NOTE | 2022-04-08 08:41 | CT ---
EXAMINATION TYPE: CT sinus wo con DATE OF EXAM: 04/08/2022 COMPARISON: None HISTORY: chronic sinusitis CT DLP: 647 mGycm CONTRAST: 0 mL of Isovue 300 The paranasal sinuses are examined in the axial plane at 2 mm thick sections. Reconstructed images i n the coronal plane were obtained. There is mucosal thickening through the right maxillary sinus. Some minimal mucosal thickening is wit hin the anterior left ethmoid air cell. Mild mucosal thickening within the mid bilateral ethmoid air cells. The sphenoid sinuses are clear. The frontal sinuses are clear. The septum is evaluated. No significant septal deviation is evident. The ostiomeatal units are obstructed bilaterally. No suspicious air fluid levels are evident. Mastoid air cells within the field of view are clear. Max illary spine and nasal bones appear intact. IMPRESSIONS: 1. Chronic appearing mucosal thickening within the right maxillary sinus, and to a mild degree, ethm oid air cells.
== END | disposition home or self-care (01) ==
LOC: RADCTMAIN 06:12
PROVIDERS: ATTEND Family Medicine
DX: J32.9 Chronic sinusitis, unspecified (principal)
CPT/HCPCS: 70486

== ENCOUNTER 2022-12-18 10:21 | Day surgery (SDC) | payer MEDICAID, OTHER ==
[2022-12-18] MEDS ORDERED: LACTATED RINGERS 1,000 ML IV SCH (11:02)
[2022-12-18 11:09] VITALS: TEMP 97.6
[2022-12-18] MEDS ORDERED: LIDOCAINE 2% INJ 20 MG/ML (2 ML VIAL) ONE (12:03)
[2022-12-18] MEDS ORDERED: PROPOFOL 10 MG/ML 20 ML VIAL IV ONE (12:03)
--- NOTE | 2022-12-18 12:22 | P.PCN ---
Date of Procedure: 12/18/22 Procedure(s) Performed: Brief history: Patient is a pleasant 47-year-old white male scheduled for an elective upper endoscopy as well as colonoscopy as a part of evaluation of GERD/intermittent dysphagia to solids and screening for colon cancer Procedure performed: Esophagogastroduodenoscopy Colonoscopy with snare polypectomy Preoperative diagnosis: GERD/intermittent dysphagia to solids Screening for colon cancer Anesthesia: MAC Procedure: After informed consent was obtained from the patient was brought into the endoscopy unit and IV sedation was administered by anesthesia under continuous monitoring. Initially upper endoscopy was done. The Olympus GF 160 video endoscope was inserted inserted into the mouth and esophagus intubated without any difficulty and was gradually advanced into the stomach and duodenum and carefully examined. The bulb and second part of the duodenum appeared normal. The scope was then withdrawn into the stomach adequately insufflated with air and upon careful examination the antrum and body, cardia and fundus appeared normal. The scope was then withdrawn into the esophagus. Small sliding type hiatal hernia noted. The GE junction was located at 40 cm to the incisors. It appeared regular with no erythema erosions or ulcerations. Rest of the eso phagus appeared normal. Patient tolerated the procedure well. At this time the patient continued to remain sedation. Initial digital rectal examination was normal. Olympus CF 160 video colonoscope was then inserted into the rectum and gradually advanced to the cecum without any difficulty. Careful examination was performed as the scope was gradually being withdrawn. The prep was excellent. The cecum, ascending colon, transverse colon, descending colon, sigmoid colon and rectum appeared normal. The rectum there were 3 small polyps measuring between 5 mm in size all of which were removed by snare polypectomy. Retroflexion was performed in the rectum and no lesions were noted. Patient tolerated the procedure well. Impression: 1. Upper endoscopy revealed a small hiatal hernia but no evidence of esophagitis or esophageal stricture 2. Colonoscopy revealed 5 mm isolated rectal polyp status post polypectomy Recommendations: Findings of this examination were discussed with the patient as well as his family. He was advised to follow with the biopsy results. If the biopsy was adenoma he can have a repeat colonoscopy in 5 years.
[2022-12-18 12:53] VITALS: BP 129/73; PULSE 72; RESP 18
== END 2022-12-18 13:26 | disposition home or self-care (01) ==
LOC: ORWHC2ENDO 10:21
PROVIDERS: ATTEND Internal Medicine Gastroenterology
DX: Z12.11 Encounter for screening for malignant neoplasm of colon (principal); K44.9 Diaphragmatic hernia without obstruction or gangrene; D12.8 Benign neoplasm of rectum; F17.210 Nicotine dependence, cigarettes, uncomplicated; J45.909 Unspecified asthma, uncomplicated; Z79.899 Other long term (current) drug therapy; Z88.8 Allergy status to other drugs, medicaments and biological substances
CPT/HCPCS: 88305; 45385; 43235; J2704; J2001